=== PATIENT | male | born 2000 | race Caucasian/White ===

== ENCOUNTER 2021-01-30 01:13 | Emergency (ER) | payer SELFPAY ==
[~2021-01-30 01:13] MED LIST: CIPRO500 MG PO
== END 2021-01-30 02:13 | disposition home or self-care (01) ==
LOC: ER1 01:13
DX: J02.0 Streptococcal pharyngitis (principal); Z20.822 Contact with and (suspected) exposure to COVID-19
CPT/HCPCS: 0240U; 87081; 87880; 96372; 99283; J0561